=== PATIENT | male | born 1965 | race Caucasian/White ===

== ENCOUNTER 2022-09-11 14:56 | Emergency (ER) | payer BC, SELFPAY ==
--- NOTE | ~2022-09-11 | XR_ITS ---
XR chest 2V DATE: 09/11/2022 15:54 INDICATION: Cough for 3 weeks TECHNIQUE: 2 views COMPARISON: None FINDINGS: There is. Normal heart size. No hilar or mediastinal enlargement. No pulmonary infiltrate o r consolidation, pleural effusion or pulmonary vascular congestion or pneumothorax. Calcified subcari nal nodes, consistent with old granulomatous disease. Old healed right rib fractures. IMPRESSION: No active cardiopulmonary disease Reviewed, dictated and finalized at location [facility] [employer]
[2022-09-11 15:15] VITALS: BP 138/94; PULSE 80; RESP 18; TEMP 36.2; O2SAT 100
--- NOTE | 2022-09-11 15:38 | ED.URI ---
HPI - URI/Sore Throat General Chief Complaint: Upper Respiratory Infection Stated Complaint: sorethroat,cough Time Seen by Provider: 09/11/22 15:38 Source: patient Mode of arrival: ambulatory Limitations: no limitations History of Present Illness HPI Narrative: 57-year-old male presents with complaint of cough for 3 weeks. Reports shortness of breath only with coughing fits. Called in to PCP last week and asked for Z-Joao due to cough. Finished Z-Joao 3 days ago and reports that he is still coughing. Patient states that his wants him checked for pneumonia. Reports only time he had a fever was for 1 day 3 weeks ago. has not had any flu or COVID testing. All systems reviewed and negative except as noted above. Related Data Home Medications Medication Instructions Recorded Confirmed lisinopril 10 mg tablet 10 mg PO DAILY 09/11/22 09/11/22 rosuvastatin 10 mg tablet 10 mg PO DAILY 09/11/22 09/11/22 Allergies Allergy/AdvReac Type Severity Reaction Status Date / Time No Known Allergies Allergy Verified 09/11/22 15:05 Review of Systems Review of Systems: CONSTITUTIONAL: Denies fever, chills, or sweats. EYES: Denies visual changes, redness, or discharge. ENT: Denies rhinorrhea, congestion, sore throat, or otalgia. CARDIOVASCULAR: Denies chest pain, palpitations, or edema. RESPIRATORY: reports cough. Denies dyspnea. GASTROINTESTINAL: Denies abdominal pain, nausea, vomiting, or diarrhea. GENITOURINARY: Denies dysuria or hematuria. SKIN: Denies rash or itching. MUSCULOSKELETAL: Denies back pain, joint pain, or myalgia. NEUROLOGIC: Denies headache, numbness, or weakness. PSYCHIATRIC: Denies anxiety or depression. All other systems reviewed are negative, except as documented in HPI. [facility] Family History Family History (System 05/29/21 @ 10:41 by Alicia Xavier) Other Cerebrovascular accident Family history of allergic disorder Family history of cardiovascular disease Family history of malignant neoplasm Social History Social History (System 05/29/21 @ 10:41 by Alicia Xavier) Smoking status: Never smoker Alcohol intake: current Comments At time of signature, agree with nursing past medical, surgical, social and family history. There is no relevant family history pertinent to the presenting complaint. Exam Narrative: GENERAL: This is a well-nourished, well-developed patient, in no apparent distress. HEAD: normocephalic, atraumatic. EYES: PERRL. Sclera clear/white. Vision is grossly intact. EARS: External ears normal, auditory canals clear and without drainage, TMs normal without perforation. Hearing grossly intact. NOSE: External nose normal with no obvious nasal discharge, nares without redness, no rhinorrhea. THROAT: Mucous membranes moist, posterior pharynx clear. NECK: Neck supple, non-tender without lymphadenopathy, masses or thyromegaly. CARDIOVASCULAR: Regular rate and rhythm without murmurs, gallops, or rubs. RESPIRATORY: Clear to auscultation. Breath sounds equal bilaterally. No wheezes, rales, or rhonchi. SKIN: warm, Dry, intact with no suspicious lesions or rash, good texture and turgor. NEURO: awake, alert, and oriented to person, place and time. There were no obvious focal neurologic abnormalities. EXTREMITIES: No joint tenderness, effusion, or edema noted. Course Course Level of Care: Express Care Visit Vital Signs Vital signs: Vital Signs Temperature 36.2 C L 09/11/22 15:15 Pulse Rate 80 09/11/22 15:15 Respiratory Rate 18 09/11/22 15:15 Blood Pressure 138/94 H 09/11/22 15:15 Pulse Oximetry 100 09/11/22 15:15 Oxygen Delivery Room Air 09/11/22 15:15 Temperature 36.2 C L 09/11/22 15:15 Pulse Rate 80 09/11/22 15:15 Respiratory Rate 18 09/11/22 15:15 Blood Pressure 138/94 H 09/11/22 15:15 Pulse Oximetry 100 09/11/22 15:15 Oxygen Delivery Room Air 09/11/22 15:15 reviewed MDM - URI/Sore Throat MDM Narrative Medical
== END 2022-09-11 16:09 | disposition home or self-care (01) ==
PROVIDERS: Emergency Provider Nurse Practitioner Family; PCP Family Medicine
DX: J20.9 Acute bronchitis, unspecified (principal); Z20.822 Contact with and (suspected) exposure to COVID-19; E78.00 Pure hypercholesterolemia, unspecified; I10 Essential (primary) hypertension
CPT/HCPCS: 71046; 87426; 99213; C9803; G0463

== ENCOUNTER 2024-03-04 08:51 | Outpatient (CLI) | payer BC, SELFPAY ==
[2024-03-30 18:17] VITALS: BMI 27.5
--- NOTE | 2024-03-30 18:17 | WPDHOMESLEEP ---
Sleep Study - Home Unattended Date of Study: 03/04/24 Ordering Provider: Zhang Nunez MD Interpreting Provider: Thao Cartagena, DO Home Sleep Study Type: Watch PAT Height: 1.78 m Weight: 87.09 kg Body Mass Index: 27.5 Neck Circumference (inches): 16.25 [place]: 8 Reason for Sleep Study Snoring Sleep History The patient is a 58-year-old male that had a sleep study ordered by his primary care physician for evaluation of sleep apnea. The patient rarely awakens from sleep short of breath. He occasionally awakens at night with heartburn, belching or cough. He frequently snores and is occasionally loud enough that others complain. He occasionally has trouble sleeping when he has a cold. He rarely wakes up gasping for air throughout the night. He occasionally has breathing problems at night observed by himself or others. He rarely sweats excessively at night. He denies having heart palpitations or irregular heartbeats during the night. He rarely falls asleep during the day but never while driving. He denies sleep paralysis, cataplexy and hypnagogic / hypnopompic hallucinations. He denies having trouble at school or work due to sleepiness. He denies feeling afraid of going to sleep. He denies having nightmares. He denies remembering his dreams. He rarely has thoughts racing through his mind. He denies feeling sad or depressed. He rarely has anxiety. He denies having muscular tension. He denies noticing parts of his body jerk. He denies kicking during the night. He denies having crawling and aching feelings in his legs and denies having leg pain during the night. He rarely grinds his teeth during sleep and never awakens with morning jaw pain. He denies being bothered by pain during the day and denies being awakened by pain during the night. He denies waking up feeling stiff in the morning. He denies waking up with sore or achy muscles. He denies waking up with pain in the neck, spine and other joints. He goes to bed at 10:00 p.m. on weekdays and at 12:00 a.m. on the weekends. It takes him 15 minutes to fall asleep. He wakes up 1-2 times throughout the night to urinate and is able to fall back asleep within 5-10 minutes. He wakes up at 6:30 a.m. on weekdays and at 7:30 a.m. on the weekends. He typically gets 7-8 hours of sleep per night. He stays in bed for 10-15 minutes after waking up in the morning. He currently lives with his . He will consume caffeinated beverages within 2 hours of bedtime. He will engage in physical exercise before bedtime. He will read and watch television before falling asleep. He denies taking naps in afternoon or the evening. He consumes 2 caffeinated beverages per day. He consumes 3-6 alcoholic beverages on the weekend. He denies tobacco and recreational drug use. [facility] Past Medical History Medical History Ascending aortic aneurysm Hyperlipidemia (Unknown) Hypertension Surgical History Surgical History History of surgery on lower extremity ORIF femur 1984 History of umbilical hernia repair 2018 History of vasectomy 2004 Family History Family History Father Hypothyroidism Ruptured cerebral aneurysm Cerebrovascular accident Mother Endometrial cancer Grandparent Heart disease Cancer Social History Social History Smoking status: Never smoker Alcohol intake: current Substance use: never Substance use type: does not use Do You Feel Safe in your Home?: Yes Lack of Transportation: No Lack of Food: Never True Current Housing: I Have Housing Concerned About Future Housing: No Difficulty Paying Gas/Electric Bills: No Difficulty Paying for Meds: No Currently Unemployed: No Education: High School Diploma
== END 2024-03-09 13:18 | disposition home or self-care (01) ==
PROVIDERS: PCP Family Medicine; Visit Provider Family Medicine
DX: G47.33 Obstructive sleep apnea (adult) (pediatric) (principal)
CPT/HCPCS: 95800

== ENCOUNTER 2025-03-01 13:50 | Outpatient (CLI) | payer OTHER, SELFPAY ==
--- NOTE | ~2025-03-01 | CT_ITS ---
Clinical Indication: Ascending aortic aneurysm CT Scan of the Chest with Contrast: Technique: Contiguous sections were acquired throughout the chest after intravenous administration of 100 cc of Omnipaque 350. Dose reduction technique was used on this scan by utilizing automated expos ure control and iterative reconstruction technique. The dose-length product (DLP) was 611.92 mGy-cm. Findings: There is no evidence of any significant mediastinal, hilar or axillary lymphadenopathy. There is no f illing defect in the pulmonary arterial tree to suggest pulmonary embolus. Ascending aorta upper limi ts of normal at 4 cm in diameter. There is no evidence of pleural or pericardial effusion. There is probable chronic scarring or atelectasis at the left lower lobe. There are a few minimal pat hannah groundglass opacities in the right upper lobe. Images through the upper abdomen reveal probable small gallstone. Impression: Ascending aorta is upper limits of normal in size at 4 cm in diameter. A few minimal patchy ground glass opacities in the right upper lobe, suggestive of subtle infectious/ inflammatory process. Chronic scarring or atelectasis left lower lobe. Reviewed, dictated and finalized at [facility]. Impression: Ascending aorta is upper limits of normal in size at 4 cm in diameter. A few minimal patchy ground glass opacities in the right upper lobe, suggestive of subtle infectious/inflammatory process. Chronic scarring or atelectasis left lower lobe.
[2025-03-01 14:08] LABS: Estimated Glomerular Filt Rate > 60
== END 2025-03-01 13:51 | disposition home or self-care (01) ==
LOC: MICIMG 13:53
PROVIDERS: PCP Family Medicine; Visit Provider Family Medicine
DX: I71.40 Abdominal aortic aneurysm, without rupture, unspecified (principal); I71.21 Aneurysm of the ascending aorta, without rupture; R91.8 Other nonspecific abnormal finding of lung field
CPT/HCPCS: 71275; Q9967